=== PATIENT | female | born 1945 | race Caucasian/White ===

== ENCOUNTER 2016-12-09 11:23 | Emergency (ER) | payer MEDICARE, OTHER ==
[2016-12-09] MEDS ORDERED: MECLIZINE HCL 25 MG TABLET PO ONE (11:46)
[2016-12-09] MEDS ORDERED: MECLIZINE HCL 25 MG TABLET ONE (11:51)
--- NOTE | 2016-12-09 11:54 | ERNOTE ---
Dizziness ER Record Date of Service: 12/09/16 Presenting Symptoms: dizziness, vertigo Time Seen by Provider: 12/09/16 11:42 Source: patient Exam Limitations: no limitations Immunizations: IMMUNIZATION HX Immunizations Up to Date Yes History of Influenza Vaccine Yes Hx Pneumococcal Vaccination Yes Allergies/Adverse Reactions: Allergies Allergy/AdvReac Type Severity Reaction Status Date / Time No Known Allergies Allergy Unverified 12/09/16 11:38 Home Medications: HOME MEDICATIONS Meclizine HCl [Antivert] 12.5 mg PO Q6H PRN #30 tab 12/09/16 [Last Taken Unknown ] - History of Present Illness Narrative: Pt. comes in with c/o dizziness for three days that has worsened since onset. Pt. states that the room spins when she opens her eyes and is worsened by movement. Pt. denies any vision changes, SOB, CP, diarrhea but states that she has developed a frontal headache and nausea. Pt. denies any prehospital treatment or previous similar symptoms. Review of Systems - Review of Systems Constitutional: Present: weakness, fatigue, malaise. Absent: recent illness, fever, chills EYE: Present: no symptoms reported. Absent: blurred vision, double vision, vision changes ENT: Present: no symptoms reported Respiratory: Present: no symptoms reported. Absent: shortness of breath, cough , wheezing Cardiology: Present: no symptoms reported. Absent: chest pain, palpitations, edema Gastrointestinal/Abdominal: Present: nausea, vomiting. Absent: diarrhea, abdominal pain Genitourinary: Present: no symptoms reported Musculoskeletal: Present: no symptoms reported. Absent: back pain, joint pain Skin: Present: no symptoms reported. Absent: rash, change in color Neurological: Present: headache, dizziness/light-headedness. Absent: weakness, numbness, tingling Hematologic/Lymphatic: Present: no symptoms reported All Other Systems: All systems neg except as marked - Patient's Past Medical History Patient History - Medical: Anxiety, Diabetes Type 2, GERD, Hypothyroidism Patient History - Cardiac/Respiratory: COPD, Hypertension, Hyperlipidemia, Sleep Apnea Patient History - Cancer: No Hx of Cancer Patient History - Surgical Procedures: Hysterectomy, Total Hip Replacement Patient History - Other: None - Social History Living Situations: other Abuse History: No History of abuse Psych History: Hx of Anxiety Smoking Status: Never smoker Have you smoked in the past 12 months: No Do you dip or chew tobacco: No Alcohol Use: none Drug Use: none - Immunizations Immunizations Up to Date: Yes Hx Pneumococcal Vaccination: Yes History of Influenza Vaccine: Yes Physical Exam - Physical Exam General Appearance: Present: wd/wn, alert, no apparent distress Eye Exam: Normal inspection: bilateral, PERRL: bilateral, EOMI: bilateral Ears, Nose, Throat: Present: normal ENT inspection, normal pharynx Neck: Present: normal inspection, nontender. 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 Also pt. had dehydration and encouraged pt. to increase fluid intake. Will have pt. follow up with PCP for further referral to PT or MRI if this returns. 12/09/16 14:14 Manual blood pressure on discharge 178/84 - Results and Orders Patient's Lab Results:: I have reviewed the patient's lab results. - Vital Signs Patient's Vital Signs:: I have reviewed the patient's vital signs. Vital Signs: Vital Signs 12/09/16 11:30 Temperature 36.0 C L Pulse Rate 58 L Respiratory 16 Rate Blood Pressure 168/87 O2 Sat by Pulse 98 Oximetry - EKG EKG: nonspecific ST T wave changes, other - Sinus keyon, no acute EKG read: Reviewed by me EKG Comments: Interpreted by Dr Magana - X-Ray X-Ray #1 X-Ray: chest Interpretation: Reviewed by me X-ray Comments: No acute CP process - CT/Ultrasound CT/Ultrasound Narrative: Head CT without acute abnormalities noted - Progress/Reassessment Chief Complaint: Dizziness Progress:: Improved Departure Clinical Impression: Benign positional vertigo Qualifiers: Laterality: left Qualified Code(s): H81.12 - Benign paroxysmal vertigo, left ear - Departure Disposition: Home self-care Condition: Good Instructions: Vertigo, [id number] Additional Instructions: Please folow up with primary provider in 2-3 days. Prescriptions: Meclizine HCl [Antivert] 12.5 mg PO Q6H PRN #30 tab PRN Reason: DIZZINESS
[2016-12-09 12:08] LABS: Hematocrit 38.1 % (37.0-47.0); Hemoglobin 12.6 gm/dL (12.5-16.0); Mean Cell Volume 85.6 fl (78-100); Mean Corpuscular Hemoglobin 28.3 pg (27-31); Mean Corpuscular Hgb Conc 33.1 g/dl (32-36); Neutrophil # 4.3 K/mm3 (1.3-6.0); Neutrophil % 53.5 % (42-75.0); Platelet Count 240 K/mm3 (150-450); Red Blood Count 4.45 M/mm3 (4.2-5.4); Red Cell Distribution Width 13.5 % (11.5-14.0); White Blood Count 8.1 K/mm3 (4.0-10.5)
[2016-12-09 12:26] LABS: ALT 28 U/L (19-67); AST 22 U/L (0-48); Albumin * 3.6 gm/dl (3.4-5.0); Alkaline Phosphatase * 75 U/L (50-170); Anion Gap 17.2 mmol/L (6.8-13.8); BUN/Creatinine Ratio 9.9 (9.0-21.6); Bilirubin, Total 0.3 mg/dL (0.0-1.1); Blood Urea Nitrogen 10 mg/dL (3-23); Ca. Corrected For Albumin 9.3 mg/dL (8.4-10.2); Calcium * 9.3 mg/dL (7.9-10.9); Carbon Dioxide 25.3 mmol/L (24-32.6); Chloride 105 mmol/L (97-106); Glucose * 178 mg/dL (70-110); Potassium 3.5 mmol/L (3.4-4.6); Sodium 144 mmol/L (132-142); Total Protein 7.8 gm/dL (6.2-8.2); Troponin I Less than 0.017 ng/ml (0.00-0.10)
[2016-12-09] MEDS ORDERED: NORMAL SALINE 1,000 ML IV ONE (12:30)
[2016-12-09 12:56] LABS: Urine Appearance Slightly Cloudy; Urine Bacteria 2+; Urine Bilirubin Negative (NEGATIVE); Urine Blood Negative /ul (NEGATIVE); Urine Color Yellow; Urine Ketone Negative (NEGATIVE); Urine Nitrite Negative (NEGATIVE); Urine Protein 15 mg/dL (NEGATIVE); Urine RBC 0-5 /hpf (0-5); Urine Specific Gravity >=1.030 SP.GR. (1.005-1.010); Urine Urobilinogen Normal (NORMAL); Urine WBC 25-50 /hpf (0-5)
[2016-12-09 14:35] VITALS: BP 178/84
== END 2016-12-09 14:33 | disposition home or self-care (01) ==
LOC: ER 11:23
DX: H81.12 Benign paroxysmal vertigo, left ear (principal)